=== PATIENT | male | born 1975 | race Caucasian/White ===

== ENCOUNTER 2023-10-21 12:00 | Inpatient (IN) | payer BC ==
[~2023-10-21] VITALS: Ht 172.7 cm; Wt 117.0 kg
[2023-10-21] MEDS ORDERED: FOLIC ACID 1 MG, THIAMINE HCL 100 MG, MAGNESIUM SULFATE 1 GM, MVI 10 ML in NACL 0.9% 1,... IV ONE (12:15)
[2023-10-21 12:22] VITALS: BP_SYST 151; PULSE 125; RESP 20; TEMP 98.7; O2SAT 86
[2023-10-21 12:53] LABS: BASOPHILS # (AUTO) 0.1 K/uL (0.0-0.2); BASOPHILS % (AUTO) 0.8 % (0.0-2.0); EOSINOPHILS # (AUTO) 0.1 K/uL (0.0-0.4); EOSINOPHILS % (AUTO) 1.1 % (0.0-4.0); HEMATOCRIT 47.2 % (36-54); HEMOGLOBIN 15.9 g/dL (14.0-18.0); LYMPHOCYTES % (AUTO) 14.7 % (20.5-51.5); MEAN CORPUSCULAR HEMOGLOBIN 32 pg (27-31); MEAN CORPUSCULAR HGB CONC 34 % (32-36); MEAN CORPUSCULAR VOLUME 96 fL (79.0-98.0); MONOCYTES # (AUTO) 0.5 K/uL (0.0-1.0); MONOCYTES % (AUTO) 7.1 % (1.7-9.3); NEUTROPHILS # (AUTO) 4.9 K/uL (1.8-7.7); NEUTROPHILS % (AUTO) 76.3 % (40.0-70.0); PLATELET COUNT (AUTO) 109 K/uL (130-430); RED BLOOD CELL COUNT(AUTO) 4.91 MIL/uL (4.2-6.2); WHITE BLOOD COUNT (AUTO) 6.5 K/uL (4.8-10.8)
[2023-10-21 13:09] LABS: INR 1.8 (0.80-1.20)
[2023-10-21 13:10] LABS: ALBUMIN 2.2 g/dL (3.4-4.8); CALCIUM 7.6 mg/dL (8.4-11.0); CREATININE 0.66 mg/dL (0.55-1.30); TOTAL BILIRUBIN 5.1 mg/dL (0.0-1.0); TOTAL PROTEIN, SERUM 8.5 g/dL (6.4-8.3)
[2023-10-21 13:11] LABS: BILIRUBIN,DIRECT 2.7 mg/dL (0.0-0.3)
[2023-10-21] MEDS ORDERED: LACTULOSE 20 GM/30 ML UDC PO ONE (13:15)
[2023-10-21] MEDS: FOLIC ACID 1 MG, MVI 10 ML in NACL 0.9% 1,000 ML IV ONE (13:30)
[2023-10-21] MEDS: THIAMINE HCL 100 MG, MAGNESIUM SULFATE 1 GM in NS 100 ML IV ONE (13:30)
[2023-10-21] MEDS ORDERED: ONDANSETRON HCL 4 MG/2 ML VIAL IVP PRN (14:15)
[2023-10-21] MEDS ORDERED: ALBUTEROL SULFATE 0.083% 2.5 MG/3 ML VIAL.NEB INH PRN (14:15)
[2023-10-21 14:20] LABS: BARBITURATE, URINE NEGATIVE (NEG <=200); BENZODIAZEPINE, URINE NEGATIVE (NEG <=150); CANNABINOID, URINE NEGATIVE (NEG <=50); COCAINE, URINE NEGATIVE (NEG <=150); METHAMPHETAMINES SCREEN,URINE POSITIVE (NEG <=500); OPIATE, URINE NEGATIVE (NEG <=100); PHENCYCLIDINE SCREEN,URINE NEGATIVE (NEG <=25); UR TRICYCLIC ANTIDEPRESSANTS NEGATIVE (NEG <=300); URINE AMPHETAMINE POSITIVE (NEG <=500); URINE METHADONE NEGATIVE (NEG <=200); URINE OXYCODONE SCREEN NEGATIVE (NEG <=100)
[2023-10-21 14:21] VITALS: BP_SYST 125; PULSE 110; O2SAT 90
[2023-10-21] MEDS: NACL 0.9% 1,000 ML IV SCH (14:25)
[2023-10-21] MEDS: LORazepam 2 MG/ML VIAL IVP PRN (14:40)
[2023-10-21] MEDS: LACTULOSE 20 GM/30 ML UDC PO ONE ×2 (19:40→19:47)
[2023-10-21] MEDS ORDERED: POTASSIUM CHLORIDE 20 MEQ/PKT PACKET ONE (19:46)
[2023-10-21] MEDS: POTASSIUM CHLORIDE 20 MEQ/PKT PACKET PO ONE (19:46)
[2023-10-21] MEDS ORDERED: LACTULOSE 20 GM/30 ML UDC ONE (19:47)
[2023-10-21] MEDS: chlordiazePOXIDE HCL 25 MG CAPSULE PO SCH (19:47)
[2023-10-21] MEDS: LACTULOSE 20 GM/30 ML UDC PO SCH (22:00)
[2023-10-21 23:16] VITALS: BP_SYST 137; PULSE 104; RESP 20; TEMP 98.2; O2SAT 92
[2023-10-22] VITALS (7 sets, daily range): BP systolic 113–153; PULSE 82–120; RESP 12–20; TEMP 98–98.7; O2SAT 0–95
[2023-10-22 07:45] LABS: BASOPHILS % (AUTO) 0.6 % (0.0-2.0); EOSINOPHILS # (AUTO) 0.1 K/uL (0.0-0.4); HEMATOCRIT 44.3 % (36-54); HEMOGLOBIN 15.1 g/dL (14.0-18.0); LYMPHOCYTES # (AUTO) 0.8 K/uL (1.0-5.5); MEAN CORPUSCULAR HEMOGLOBIN 33 pg (27-31); MEAN CORPUSCULAR HGB CONC 34 % (32-36); MEAN CORPUSCULAR VOLUME 96 fL (79.0-98.0); MONOCYTES # (AUTO) 0.4 K/uL (0.0-1.0); MONOCYTES % (AUTO) 7.8 % (1.7-9.3); NEUTROPHILS # (AUTO) 4.3 K/uL (1.8-7.7); NEUTROPHILS % (AUTO) 75.6 % (40.0-70.0); PLATELET COUNT (AUTO) 86 K/uL (130-430); RED BLOOD CELL COUNT(AUTO) 4.64 MIL/uL (4.2-6.2); RED CELL DISTRIBUTION WIDTH 16.2 % (9.0-15.0); WHITE BLOOD COUNT (AUTO) 5.8 K/uL (4.8-10.8)
[2023-10-22 07:50] LABS: CALCIUM 7.4 mg/dL (8.4-11.0); PHOSPHORUS 3.6 mg/dL (2.7-4.5)
[2023-10-22 08:56] LABS: CREATININE 0.51 mg/dL (0.55-1.30); POTASSIUM 3.4 mmol/L (3.5-5.1)
[2023-10-22] MEDS: NEPHROVITE, (FOLIC ACID/VITAMIN B COMP W-C 1 TAB) PO SCH (09:09)
[2023-10-22] MEDS: MULTIVITAMIN/IRON/FOLIC ACID 1 TAB TABLET PO SCH (09:18)
[2023-10-22 12:31] LABS: BILIRUBIN,DIRECT 2.8 mg/dL (0.0-0.3); TOTAL PROTEIN, SERUM 7.8 g/dL (6.4-8.3)
[2023-10-22] MEDS: POTASSIUM CHLORIDE 20 MEQ TABLET.ER PO ONE (14:34)
[2023-10-22] MEDS: prednisoLONE 15 MG/5 ML UDC PO ONE (18:06)
[2023-10-23] VITALS (7 sets, daily range): BP systolic 124–152; PULSE 103–163; RESP 12–18; TEMP 97.3–98.2; O2SAT 90–98
[2023-10-23 08:06] LABS: BASOPHILS % (AUTO) 0.5 % (0.0-2.0); EOSINOPHILS % (AUTO) 0.1 % (0.0-4.0); HEMOGLOBIN 16.2 g/dL (14.0-18.0); LYMPHOCYTES # (AUTO) 0.6 K/uL (1.0-5.5); LYMPHOCYTES % (AUTO) 7.6 % (20.5-51.5); MEAN CORPUSCULAR HEMOGLOBIN 33 pg (27-31); MEAN CORPUSCULAR HGB CONC 35 % (32-36); MEAN CORPUSCULAR VOLUME 95 fL (79.0-98.0); MONOCYTES # (AUTO) 0.5 K/uL (0.0-1.0); MONOCYTES % (AUTO) 5.5 % (1.7-9.3); NEUTROPHILS # (AUTO) 7.2 K/uL (1.8-7.7); NEUTROPHILS % (AUTO) 86.3 % (40.0-70.0); PLATELET COUNT (AUTO) 88 K/uL (130-430); RED BLOOD CELL COUNT(AUTO) 4.95 MIL/uL (4.2-6.2); RED CELL DISTRIBUTION WIDTH 15.7 % (9.0-15.0); WHITE BLOOD COUNT (AUTO) 8.3 K/uL (4.8-10.8)
[2023-10-23 08:37] LABS: ALBUMIN 2.1 g/dL (3.4-4.8); CALCIUM 8.1 mg/dL (8.4-11.0); CREATININE 0.6 mg/dL (0.55-1.30); TOTAL PROTEIN, SERUM 8.6 g/dL (6.4-8.3)
[2023-10-23 08:44] LABS: TOTAL BILIRUBIN 7.1 mg/dL (0.0-1.0)
[2023-10-23] MEDS: PANTOPRAZOLE SODIUM 40 MG TAB PO SCH (09:24)
[2023-10-23] MEDS: prednisoLONE 15 MG/5 ML UDC PO SCH (09:25)
[2023-10-23] MEDS: METOPROLOL TARTRATE 5 MG/5 ML VIAL IVP ONE (13:00)
[2023-10-23] MEDS: METOPROLOL SUCCINATE 25 MG TAB.SR.24H (TOPROL XL) PO ONE (14:18)
[2023-10-24 00:34] LABS: BILIRUBIN,URINE NEGATIVE (NEGATIVE); BLOOD, URINE 1+ (NEGATIVE); CLARITY/URINE HAZY (CLEAR); COLOR,URINE YELLOW (YELLOW); GLUCOSE,URINE NEGATIVE (NEGATIVE); KETONES,URINE NEGATIVE (NEGATIVE); LEUKOCYTE ESTERASE ,URINE NEGATIVE (NEGATIVE); NITRITE, URINE NEGATIVE (NEGATIVE); PROTEIN URINE NEGATIVE (NEGATIVE)
[2023-10-24 00:35] LABS: BACTERIA,URINE None Seen /HPF (None Seen); WBC,URINE 0-3 /HPF (0-3)
[2023-10-24 00:38] VITALS: BP_SYST 124; PULSE 107; RESP 15; TEMP 98.9; O2SAT 94
[2023-10-24 02:06] LABS: HEPATITIS A AB, IgM Negative (Negative); HEPATITIS B CORE AB, IgM Negative (Negative); HEPATITIS B SURFACE AG Negative (Negative); HEPATITIS C VIRUS AB Non Reactive (Non Reactive)
[2023-10-24 04:37] LABS: BASOPHILS % (AUTO) 0.1 % (0.0-2.0); EOSINOPHILS % (AUTO) 0.3 % (0.0-4.0); HEMATOCRIT 42.3 % (36-54); HEMOGLOBIN 14.2 g/dL (14.0-18.0); LYMPHOCYTES % (AUTO) 7.6 % (20.5-51.5); MEAN CORPUSCULAR HEMOGLOBIN 32 pg (27-31); MEAN CORPUSCULAR HGB CONC 34 % (32-36); MEAN CORPUSCULAR VOLUME 97 fL (79.0-98.0); MONOCYTES # (AUTO) 1.3 K/uL (0.0-1.0); MONOCYTES % (AUTO) 10.2 % (1.7-9.3); NEUTROPHILS # (AUTO) 10.6 K/uL (1.8-7.7); NEUTROPHILS % (AUTO) 81.8 % (40.0-70.0); PLATELET COUNT (AUTO) 77 K/uL (130-430); RED BLOOD CELL COUNT(AUTO) 4.39 MIL/uL (4.2-6.2); RED CELL DISTRIBUTION WIDTH 16.2 % (9.0-15.0)
[2023-10-24 05:00] LABS: ALBUMIN 1.9 g/dL (3.4-4.8); CALCIUM 7.8 mg/dL (8.4-11.0); CREATININE 0.67 mg/dL (0.55-1.30); POTASSIUM 3.5 mmol/L (3.5-5.1); TOTAL BILIRUBIN 5.9 mg/dL (0.0-1.0); TOTAL PROTEIN, SERUM 7.6 g/dL (6.4-8.3)
[2023-10-24 08:12] VITALS: O2SAT 92
[2023-10-24 08:13] VITALS: BP_SYST 142; PULSE 111; RESP 24; TEMP 98.2; O2SAT 95
[2023-10-24] MEDS: MULTIVITAMINS TAB 1 TABLET PO SCH (08:37)
[2023-10-24] MEDS: METOPROLOL SUCCINATE 25 MG TAB.SR.24H (TOPROL XL) PO SCH (08:38)
[2023-10-24 08:50] VITALS: PULSE 111; O2SAT 87
[2023-10-24 11:16] VITALS: BP_SYST 137; PULSE 91; RESP 32; TEMP 98.5; O2SAT 97
[2023-10-24] MEDS ORDERED: RIFAXIMIN 550 MG TABLET PO ONE (12:15)
[2023-10-24] MEDS ORDERED: RIFAXIMIN 550 MG TABLET PO SCH (21:00)
== END 2023-10-24 15:10 | disposition left against medical advice (07) | DRG 280 ==
LOC: SED 12:00 → STU 14:11
PROVIDERS: ADMIT General Practice; ATTEND General Practice
DX: K70.10 Alcoholic hepatitis without ascites (principal); K70.40 Alcoholic hepatic failure without coma; J96.01 Acute respiratory failure with hypoxia; K76.82 Hepatic encephalopathy; E83.51 Hypocalcemia; F10.139 Alcohol abuse with withdrawal, unspecified; I10 Essential (primary) hypertension; K70.9 Alcoholic liver disease, unspecified; F19.10 Other psychoactive substance abuse, uncomplicated; Z79.899 Other long term (current) drug therapy; F15.90 Other stimulant use, unspecified, uncomplicated; F17.200 Nicotine dependence, unspecified, uncomplicated; Y90.8 Blood alcohol level of 240 mg/100 ml or more
CPT/HCPCS: 36415; 76700; 80048; 80053; 80074; 80076; 80307; 81000; 81001; 81015; 82140; 83735; 84100; 85025; 85610; 85730; 93005; 93306; 94070; 94760; 99291; G0378; G0482; J2060; J3411; J3475; J3490; J7030